=== PATIENT | female | born 1945 | race Two or more races ===

== ENCOUNTER 2017-07-02 16:44 | Emergency (ER) | payer SELFPAY ==
[~2017-07-02] VITALS: Ht 162.6 cm; Wt 65.8 kg
[~2017-07-02 16:44] MED LIST: AMLO10TA2 PO; ASPI-605 PO; CEPH-570 PO; CLOP75TA2 PO; GLIP10TA11 PO; LEVO50TA8 PO; METF500T4 PO; OMEP20CA10 PO; SIMV10TA6 PO
--- NOTE | 2017-07-02 17:00 | NUR ---
PT CAME IN FOR RIGHT ANKLE INJURY x 1 MONTH AGO, GETTING WORSE, RADIATES TO THIGH. SEEN BY MD VERITO GABRIEL. VSS. FAMILY MEMBER REMAINS AT BS. SAFETY AND COMFORT MEASURES PROVIDED. WILL MONITOR.
--- NOTE | 2017-07-02 17:05 | NUR ---
DOPPLER STUDY AT .
--- NOTE | 2017-07-02 17:42 | NUR ---
Patient discharged to home in stable condition. Written and verbal after care instructions given. Patient verbalizes understanding of instruction.
[2017-07-02 17:45] VITALS: BP 158/71
== END 2017-07-02 17:45 | disposition home or self-care (01) ==
LOC: ER 16:46
DX: I83.013 Varicose veins of right lower extremity with ulcer of ankle (principal); L97.319 Non-pressure chronic ulcer of right ankle with unspecified severity; E78.5 Hyperlipidemia, unspecified; I10 Essential (primary) hypertension; E11.622 Type 2 diabetes mellitus with other skin ulcer; E03.9 Hypothyroidism, unspecified; Z79.82 Long term (current) use of aspirin
CPT/HCPCS: 93971; 99284; A4606; Z7610

== ENCOUNTER 2020-07-15 23:54 | Inpatient (IN) | payer MEDICAID ==
[~2020-07-15] VITALS: Ht 157.5 cm; Wt 66.5 kg
[~2020-07-15 23:54] MED LIST changes: +AMLO-213 PO; -AMLO10TA2 PO; +CLOP75TA15 PO; -CLOP75TA2 PO; +METF-440 PO; -METF500T4 PO; -OMEP20CA10 PO; +OMEP20CA15 PO; -SIMV10TA6 PO; +SIMV10TA98 PO
--- NOTE | 2020-07-16 00:14 | NUR ---
BIB DAUGHTER FOR C/O WORSENING BLE EDEMA FOR 2 DAYS. - C/O PAIN OR DISCOMFORT. PT AMBULATORY TO BED 09. PLACED ON A MONITOR . VSS. WILL CONT TO MONITOR ,
--- NOTE | 2020-07-16 01:08 | NUR ---
BLOOD COLLECTED AND SENT TO LAB
--- NOTE | 2020-07-16 01:16 | NUR ---
URINE COLLECTED AND SENT TO LAB
[2020-07-16 01:23] LABS: BILIRUBIN,URINE NEGATIVE (NEGATIVE); BLOOD, URINE TRACE-INTA Ery/uL (NEGATIVE); COLOR,URINE YELLOW (YELLOW); LEUKOCYTE ESTERASE ,URINE SMALL (NEGATIVE); NITRITE, URINE NEGATIVE (NEGATIVE); PROTEIN,URINE NEGATIVE (NEGATIVE); UGLUCOSE NEGATIVE (NEGATIVE); UROBILINOGEN,URINE 0.2 EU/dL (0.2)
[2020-07-16 01:25] LABS: BASOPHILS % (AUTO) 0.5 % (0.0-2.0); EOSINOPHILS % (AUTO) 2.1 % (0.0-6.0); HEMATOCRIT 31 % (33-45); LYMPHOCYTES # (AUTO) 3.2 /CMM (0.8-4.8); LYMPHOCYTES % (AUTO) 40.8 % (20.0-44.0); MEAN CORPUSCULAR HGB CONC 33 g/dl (31.0-36.0); MEAN CORPUSCULAR VOLUME 82 fL (82-100); MONOCYTES # (AUTO) 0.5 /CMM (0.1-1.30); NEUTROPHILS % (AUTO) 50.6 % (43.0-81.0); PLATELET COUNT (AUTO) 314 /CMM (150-450); RED BLOOD CELL COUNT(AUTO) 3.73 MIL/uL (4.0-5.2); WHITE BLOOD COUNT (AUTO) 7.9 K/uL (4.3-11.0)
[2020-07-16 01:28] LABS: BACTERIA,URINE None seen /HPF (None Seen); SQUAMOUS EPITHELIAL CELL,UR Few /HPF (None Seen); WBC,URINE 0-2 /HPF (0-3)
[2020-07-16 01:35] LABS: CALCIUM, SERUM 8.5 mg/dL (8.5-10.1); CARBON DIOXIDE 22 mmol/L (21-32); CHLORIDE 102 mmol/L (98-107); CREATININE 1.1 mg/dL (0.6-1.3); GLUCOSE 230 mg/dL (74-106); SODIUM SERUM 138 mmol/L (136-145); UREA NITROGEN, BLOOD 27 mg/dL (7-18)
[2020-07-16 01:41] LABS: ALANINE AMINOTRANSFERASE 42 U/L (12-78); ALBUMIN 3.5 g/dL (3.4-5.0); ALKALINE PHOSPHATASE 122 U/L (46-116); ASPARTATE AMINOTRANSFERASE 15 U/L (15-37); BILIRUBIN,TOTAL 0.2 mg/dL (0.2-1.0); TOTAL PROTEIN, SERUM 7.7 g/dL (6.4-8.2)
--- NOTE | 2020-07-16 02:38 | NUR ---
US TECH AT BED SIDE
[2020-07-16] MEDS ORDERED: CRAN250C PO (04:53)
[2020-07-16] MEDS ORDERED: LEVO88TA5 PO (04:53)
[2020-07-16] MEDS ORDERED: ATOR40TA GT (04:53)
[2020-07-16] MEDS ORDERED: METO50TA16 PO (04:53)
--- NOTE | 2020-07-16 04:57 | NUR ---
DR DIANE PAGED PER MD'S ORDER
[2020-07-16] MEDS ORDERED: ASPIRIN 81 MG TAB.CHEW PO ONE (05:00)
[2020-07-16] MEDS ORDERED: ASPIRIN 81 MG TAB.CHEW ONE (05:00)
[2020-07-16] MEDS ORDERED: FUROSEMIDE 20 MG/2 ML VIAL IV ONE (05:00)
[2020-07-16] MEDS ORDERED: FUROSEMIDE 20 MG/2 ML VIAL ONE (05:00)
--- NOTE | 2020-07-16 05:26 | NUR ---
CALLED HOUSE SUP FOR TELE BED. COVID : NEG
--- NOTE | 2020-07-16 05:30 | NUR ---
TELE BED : 921-
--- NOTE | 2020-07-16 05:52 | NUR ---
REPORT GIVEN TO HYUN GIANG FOR MAHESH
--- NOTE | 2020-07-16 06:25 | NUR ---
PT WAS TRANSFERRED TO 325 UNDER ACLS
[2020-07-16] MEDS ORDERED: MAGNESIUM HYDROXIDE 30 ML UDC PO PRN (06:30)
[2020-07-16] MEDS ORDERED: Z GUARD REMEDY 2 OZ OINT TP PRN (06:30)
[2020-07-16] MEDS ORDERED: HYDROCODONE/APAP 5/325MG TABLET PO PRN (06:30)
[2020-07-16] MEDS ORDERED: MAG HYDROX/AL HYDROX/SIMETH 30 ML UDC PO PRN (06:30)
[2020-07-16] MEDS ORDERED: ZOLPIDEM TARTRATE 5 MG TABLET PO PRN (06:30)
[2020-07-16] MEDS ORDERED: ONDANSETRON HCL/PF 4 MG/2 ML VIAL IVP PRN (06:30)
[2020-07-16] MEDS ORDERED: ACETAMINOPHEN 325 MG TABLET PO PRN (06:30)
--- NOTE | 2020-07-16 06:30 | NUR ---
BURRING WHEEL OPERATOR OPEN NOTES RECEIVED PT FROM ER VIA GURNEY. PT WAS ABLE TO AMBULATE TO BED. A/O X4, WOLOF SPEAKING. STABLE ON RA, NO SOB/ ACUTE RESPIRATORY DISTRESS NOTED. IV IN L UPPERARM #20G IS PATENT AND INTACT. PT DENIES ANY PAIN AT THE MOMENT. PT ORIENTED TO ROOM. BED IS IN LOWEST LOCKED POSITION WITH SIDE RAILS UP X2, SEMI FOWLERS. BED ALARM ON. CALL LIGHT IS WITHIN REACH. WILL ENDORSE TO AM NURSE. VS UPON ADMISSION: BP 133/58 HR 67 RR 18 TEMP 98.1 O2 99%
--- NOTE | 2020-07-16 07:30 | NUR ---
TELE/RN OPENING NOTES Received patient in bed, A&O x 4, indian speaking. Denies any pain/discomfort at this time. Breathing even and non-labored on RA, denies SOB. No cardiac distress noted, on tele monitor reading SR 60s. IV access noted on ROSLYN #20g, patent and intact, and flushing well. Bed locked to its lowest position, side rails x 2 up, call light in hand. Will continue with current medical management.
[2020-07-16 08:00] VITALS: BP 133/64
[2020-07-16] MEDS: CLOPIDOGREL BISULFATE 75 MG TABLET PO SCH (08:28)
[2020-07-16] MEDS: FUROSEMIDE 20 MG/2 ML VIAL IV SCH (08:29)
[2020-07-16] MEDS: METOPROLOL TARTRATE 50 MG TABLET PO SCH ×2 (08:29→16:55)
[2020-07-16] MEDS: METFORMIN 500 MG TABLET PO SCH ×2 (08:37→16:55)
[2020-07-16] MEDS ORDERED: AMLODIPINE BESYLATE 10 MG TABLET PO SCH (09:00)
[2020-07-16] MEDS ORDERED: Medication Not On Formulary EA (Cranberry Extract (Cranberry) 250 MG) PO SCH (09:00)
[2020-07-16] MEDS ORDERED: ASPIRIN EC 81 MG TABLET.DR PO SCH (09:00)
[2020-07-16] MEDS: VALSARTAN 80 MG TABLET PO SCH (09:11)
[2020-07-16 10:16] LABS: THYROID STIMULATING HORMONE 0.01 uIU/mL (0.358-3.74)
--- NOTE | 2020-07-16 13:16 | NUR ---
TELE/RN NOTE Notified Pilar Navarro of patient's VTE score of 3. Ordered Lovenox 30 mg q24h. Orders carried out. Patient contraindicated for DVT pumps due to BLE edema. Will continue to monitor.
[2020-07-16] MEDS: ENOXAPARIN SODIUM 40 MG/0.4 ML DISP.SYRIN SQ SCH (14:22)
[2020-07-16 16:00] VITALS: BP 117/57
--- NOTE | 2020-07-16 17:00 | NUR ---
MS/RN NOTE Patient's daughter, Alexia, called to ask if she could talk to the hospitalist regarding plan of care. Notified Pilar Navarro NP and gave patient's daughter's number based on face sheet.
--- NOTE | 2020-07-16 19:34 | NUR ---
MS/RN CLOSING NOTES Patient in bed, A&O x 4. All needs met and attended to. VSS, afebrile. Denies any pain/discomfort at this time. Breathing even and non-labored on RA, denies SOB. No cardiac distress noted.. IV access noted on ROSLYN #20g, patent and intact, and flushing well. Sensation from all peripheral extremities intact. Fall precautions maintained. Will endorse to wine blender nurse.
--- NOTE | 2020-07-16 19:40 | NUR ---
MSRN FULLY AWAKE, NO COMPLAINTS MADE,, STABLE FOR NOW. SAFETY PRECAUTIONS EMPHASIZED, REMINDED TO CALL STAFF FOR ANY DISCOMFORTS, PLAN OF CARE AND MEDICATION REGIMEN DISCUSSED WITH PATIENT APPEARS TO UNDERSTAND. FLUIDS MONITORED.
[2020-07-16 20:00] VITALS: BP 109/55
[2020-07-16] MEDS ORDERED: ATORVASTATIN 40 MG TABLET PO SCH (22:00)
[2020-07-17] MEDS ORDERED: LEVOTHYROXINE SODIUM 88 MCG TABLET PO SCH (07:30)
[2020-07-17 07:39] LABS: BASOPHILS % (AUTO) 0.6 % (0.0-2.0); EOSINOPHILS % (AUTO) 1.3 % (0.0-6.0); HEMATOCRIT 32 % (33-45); HEMOGLOBIN 10.5 g/dL (11.5-14.8); LYMPHOCYTES % (AUTO) 42.7 % (20.0-44.0); MEAN CORPUSCULAR HGB CONC 33 g/dl (31.0-36.0); MEAN CORPUSCULAR VOLUME 82 fL (82-100); MONOCYTES # (AUTO) 0.4 /CMM (0.1-1.30); MONOCYTES % (AUTO) 6.2 % (2.0-12.0); NEUTROPHILS # (AUTO) 3.4 /CMM (1.8-8.9); NEUTROPHILS % (AUTO) 49.2 % (43.0-81.0); PLATELET COUNT (AUTO) 343 /CMM (150-450)
[2020-07-17 07:54] LABS: ALANINE AMINOTRANSFERASE 39 U/L (12-78); ALBUMIN 3.3 g/dL (3.4-5.0); ALKALINE PHOSPHATASE 108 U/L (46-116); ASPARTATE AMINOTRANSFERASE 19 U/L (15-37); BILIRUBIN,TOTAL 0.2 mg/dL (0.2-1.0); CALCIUM, SERUM 8.6 mg/dL (8.5-10.1); CARBON DIOXIDE 25 mmol/L (21-32); CHLORIDE 102 mmol/L (98-107); CREATININE 0.9 mg/dL (0.6-1.3); GLUCOSE 180 mg/dL (74-106); MAGNESIUM 1.7 mg/dL (1.8-2.4); PHOSPHORUS 4.3 mg/dL (2.5-4.9); SODIUM SERUM 139 mmol/L (136-145); TOTAL PROTEIN, SERUM 7.4 g/dL (6.4-8.2); UREA NITROGEN, BLOOD 22 mg/dL (7-18)
[2020-07-17 08:00] VITALS: BP 138/65
--- NOTE | 2020-07-17 08:00 | NUR ---
RECEIVED PT. IN AM ALERT AND ORIENTED X4. NO COMPLAINTS OFFERED FAMILY CALLING IN.
[2020-07-17 08:05] LABS: CHOLESTEROL 155 mg/dL (<200); HDL CHOLESTEROL 60 mg/dL (40-60); LDL 67 mg/dL (0-99); TRIGLYCERIDES 205 mg/dL (30-150)
[2020-07-17] MEDS ORDERED: ASPIRIN EC 81 MG TABLET.DR PO SCH (09:00)
[2020-07-17] MEDS: METFORMIN 500 MG TABLET PO SCH (09:45)
[2020-07-17] MEDS: CLOPIDOGREL BISULFATE 75 MG TABLET PO SCH (09:45)
[2020-07-17] MEDS: METOPROLOL TARTRATE 50 MG TABLET PO SCH (09:46)
[2020-07-17] MEDS: FUROSEMIDE 20 MG/2 ML VIAL IV SCH (09:46)
[2020-07-17] MEDS: ENOXAPARIN SODIUM 40 MG/0.4 ML DISP.SYRIN SQ SCH (09:47)
[2020-07-17] MEDS: VALSARTAN 80 MG TABLET PO SCH (11:00)
[2020-07-17] MEDS ORDERED: Magnesium 1GM/D5W 100ML PREMIX 100 ML IV SCH (11:30)
[2020-07-17] MEDS: Magnesium 1GM/D5W 100ML PREMIX 100 ML IV SCH ×2 (11:55→12:57)
--- NOTE | 2020-07-17 13:00 | NUR ---
Cherelle DAVIS COTTON CLASSER AIDE HERE AND PLANS TO DISCH. TODAY.MG REPLACEMENT DONE.
[2020-07-17] MEDS ORDERED: VALS80TA2 PO (14:35)
[2020-07-17] MEDS ORDERED: FURO-145 PO (14:35)
[2020-07-17] MEDS ORDERED: LEVO75TA PO (14:35)
--- NOTE | 2020-07-17 15:30 | NUR ---
Cherelle DAVIS CALLING FAMILY WITH REPORT ON PT.ALL PAPERS SIGNED.RN CALLING FAMILY WITH INFO ON HOME MEDS.HEP LOCK OUT.TAKEN TO CAR BY FIELD REPRESENTATIVE VIA W/C.PT. WITH PRESCRIPTIONS.
[2020-07-17 16:00] VITALS: BP 135/59
== END 2020-07-17 16:50 | disposition home or self-care (01) | DRG 194 ==
LOC: ER 23:57 → TELE 07-16 05:31 → MED 07-16 12:23
PROVIDERS: ADMIT Nurse Practitioner Acute Care; ATTEND Nurse Practitioner Acute Care
DX: I11.0 Hypertensive heart disease with heart failure (principal); E11.9 Type 2 diabetes mellitus without complications; E78.5 Hyperlipidemia, unspecified; F03.90 Unspecified dementia, unspecified severity, without behavioral disturbance, psychotic disturbance, mood disturbance, and anxiety; Z86.73 Personal history of transient ischemic attack (TIA), and cerebral infarction without residual deficits; E05.90 Thyrotoxicosis, unspecified without thyrotoxic crisis or storm; I50.33 Acute on chronic diastolic (congestive) heart failure; J96.01 Acute respiratory failure with hypoxia; Z79.82 Long term (current) use of aspirin; Z79.02 Long term (current) use of antithrombotics/antiplatelets; J90 Pleural effusion, not elsewhere classified; D50.9 Iron deficiency anemia, unspecified; Z79.84 Long term (current) use of oral hypoglycemic drugs
CPT/HCPCS: 36415; 71045-TC; 80048-TC; 80053-TC; 80061-TC; 80076-TC; 81001; 82728-TC; 83540-TC; 83735-TC; 83880; 84100-TC; 84155; 84165; 84439-TC; 84443-TC; 84484-TC; 85025-TC; 87081-TC; 93307-TC; 93970-TC; C9803; G0378; J1650; J1940; J3475

== ENCOUNTER 2021-02-01 11:38 | Inpatient (IN) | payer MEDICAID ==
[~2021-02-01] VITALS: Ht 157.5 cm; Wt 72.1 kg
[~2021-02-01 11:38] MED LIST changes: -AMLO-213 PO; +ATOR40TA PO; -CEPH-570 PO; +CRAN250C PO; +FURO-145 PO; -GLIP10TA11 PO; -LEVO50TA8 PO; +LEVO75TA PO; +METO50TA16 PO; -OMEP20CA15 PO; -SIMV10TA98 PO; +VALS80TA2 PO
--- NOTE | 2021-02-01 11:55 | NUR ---
BIB Daughter "weakness/numbness on/off x2wks was given neurontin by PMD but not better numbness worse now>L arm" Patient a/ox4, estonian speaking, changed into a gown, attached to the oil burner servicer and installer. Dr. Emmanuel at bedside for eval.
[2021-02-01] MEDS ORDERED: LEVO25TA7 PO (12:15)
[2021-02-01] MEDS ORDERED: ERGO500040 PO (12:15)
[2021-02-01] MEDS ORDERED: *INS REG3 IJ (12:15)
[2021-02-01] MEDS ORDERED: IBUP-1955 PO (12:15)
[2021-02-01] MEDS ORDERED: INSU100V10 SQ (12:15)
[2021-02-01] MEDS ORDERED: GABA-532 PO (12:15)
[2021-02-01] MEDS ORDERED: CARV25TA PO (12:15)
[2021-02-01 12:25] LABS: BASOPHILS % (AUTO) 0.6 % (0.0-2.0); EOSINOPHILS % (AUTO) 1.7 % (0.0-6.0); HEMATOCRIT 30 % (33-45); HEMOGLOBIN 9.9 g/dL (11.5-14.8); LYMPHOCYTES % (AUTO) 29.8 % (20.0-44.0); MEAN CORPUSCULAR HGB CONC 33 g/dl (31.0-36.0); MEAN CORPUSCULAR VOLUME 91 fL (82-100); MONOCYTES # (AUTO) 0.5 /CMM (0.1-1.30); MONOCYTES % (AUTO) 7.8 % (2.0-12.0); NEUTROPHILS # (AUTO) 4.1 /CMM (1.8-8.9); NEUTROPHILS % (AUTO) 60.1 % (43.0-81.0); PLATELET COUNT (AUTO) 234 /CMM (150-450); RED BLOOD CELL COUNT(AUTO) 3.35 MIL/uL (4.0-5.2); WHITE BLOOD COUNT (AUTO) 6.8 K/uL (4.3-11.0)
[2021-02-01 12:31] LABS: CALCIUM, SERUM 8.7 mg/dL (8.5-10.1); CARBON DIOXIDE 27 mmol/L (21-32); CHLORIDE 105 mmol/L (98-107); GLUCOSE 66 mg/dL (74-106); POTASSIUM 4.1 mmol/L (3.5-5.1); SODIUM SERUM 141 mmol/L (136-145); UREA NITROGEN, BLOOD 41 mg/dL (7-18)
[2021-02-01 12:37] LABS: ALANINE AMINOTRANSFERASE 31 U/L (12-78); ALBUMIN 3.5 g/dL (3.4-5.0); ALKALINE PHOSPHATASE 70 U/L (46-116); ASPARTATE AMINOTRANSFERASE 19 U/L (15-37); BILIRUBIN,DIRECT 0.1 mg/dL (0.0-0.2); BILIRUBIN,TOTAL 0.2 mg/dL (0.2-1.0); TOTAL PROTEIN, SERUM 7.2 g/dL (6.4-8.2)
[2021-02-01 12:55] LABS: THYROID STIMULATING HORMONE 3.171 uIU/mL (0.358-3.74)
--- NOTE | 2021-02-01 12:55 | NUR ---
PATIENT WENT TO THE RESTROOM WITH THE DAUGHTER, THEN STARTED C/O DIZZINESS AND SWEATING. BS CHECKED 40. DR. NARAYAN MADE AWARE AND RECEIVED ORDER TO GIVE DEXTROSE 50% IV X1.
[2021-02-01] MEDS ORDERED: DEXTROSE 50%-WATER 50 ML DISP.SYRIN ONE (12:58)
--- NOTE | 2021-02-01 13:07 | NUR ---
urine and covid swab sent to lab.
[2021-02-01 13:16] LABS: BILIRUBIN,URINE Negative (NEGATIVE); COLOR,URINE YELLOW (YELLOW); LEUKOCYTE ESTERASE ,URINE Negative (NEGATIVE); NITRITE, URINE Negative (NEGATIVE); PROTEIN,URINE Negative (NEGATIVE); UGLUCOSE Negative (NEGATIVE); UROBILINOGEN,URINE 0.2 EU/dL (0.2)
[2021-02-01] MEDS ORDERED: IV NS 0.9% 1,000 ML BAG IV ONE (13:30)
[2021-02-01] MEDS ORDERED: DEXTROSE 50%-WATER 50 ML DISP.SYRIN IV ONE (13:30)
--- NOTE | 2021-02-01 13:43 | NUR ---
COVID NEGATIVE RESULT
--- NOTE | 2021-02-01 14:05 | NUR ---
PATIENT IS RESTING, NO DISTRESS NOTED.
--- NOTE | 2021-02-01 14:12 | NUR ---
bed 329-1
--- NOTE | 2021-02-01 14:18 | NUR ---
REPORT GIVEN TO YOSELIN LOPEZ FOR MAHESH.
--- NOTE | 2021-02-01 14:48 | NUR ---
PATIENT A/OX4, BREATHING EVEN AND UNLABORED, KEPT OXYGEN OFF, PATIENT HAS A SPO2 OF 97% ON ROOM AIR. NEEDS ATTENDED. PATIENT TRANSFERRED TO ROOM 329 IN STABLE CONDITION.
--- NOTE | 2021-02-01 14:50 | NUR ---
RN ADMITTING NOTES PT TRANSPORTED BY BED TO UNIT FROM ED AT THIS TIME RECEIVED REPORT FROM LAUREL ELKINS AOX4. SAMOAN SPEAKING. NO SOB NOTED, NO C//O OF PAIN AT THIS TIME, NO S/S OF ANY APPARENT DISTRESS NOTED.RESPIRATIONS EVEN AND UNLABORED, STABLE ON RA. ACTIVE BOWEL SOUNDS AUSCULTATED THROUGHOUT, INTACT SKIN AND WARM TO TOUCH. CAPILLARY REFILL< 3SECONDS, PULSES PRESENT BILATERALLY, GOOD CIRCULATION NOTED. IV ACCESS NOTED IN LEFT HAND G#20, INTACT, PATENT AND FLUSHING WELL. PT'S BELONGINGS ACCOUNTED FOR, SIGNED BY PT AND KEPT AT PT'S BEDSIDE PER PT REQUEST. ASPIRATION AND SAFETY PRECAUTIONS IN PLACE AND MAINTAINED AT ALL TIMES. BED IN LOWEST LOCKED POSITION, SIDE RAILS UPX2, TABLE AND CALL LIGHT WITHIN REACH. WILL CONTINUE WITH PLAN OF CARE
[2021-02-01 16:09] VITALS: BP 161/66
[2021-02-01] MEDS ORDERED: MAG HYDROX/AL HYDROX/SIMETH 30 ML UDC PO PRN (16:30)
[2021-02-01] MEDS ORDERED: ONDANSETRON HCL/PF 4 MG/2 ML VIAL IVP PRN (16:30)
[2021-02-01] MEDS ORDERED: DEXTROSE 50%-WATER 50 ML DISP.SYRIN IV PRN (16:30)
[2021-02-01] MEDS ORDERED: IBUPROFEN 600 MG TABLET PO PRN (16:30)
[2021-02-01] MEDS ORDERED: MAGNESIUM HYDROXIDE 30 ML UDC PO PRN (16:30)
[2021-02-01] MEDS ORDERED: ACETAMINOPHEN 325 MG TABLET PO PRN (16:30)
[2021-02-01] MEDS ORDERED: Z GUARD REMEDY 2 OZ OINT TP PRN (16:30)
[2021-02-01] MEDS: IV NS 0.9% 1,000 ML IV PRN (17:21)
[2021-02-01] MEDS: GABAPENTIN 100 MG CAPSULE PO SCH (17:34)
[2021-02-01] MEDS: BLOOD SUGAR DIAGNOSTIC 1 EACH STRIP IN SCH ×2 (17:35→23:26)
--- NOTE | 2021-02-01 18:45 | NUR ---
RN CLOSING NOTES PT AWAKE IN BED AT THIS TIME. PT REMAINED STABLE THROUGHOUT SHIFT. SAFETY PRECAUTIONS IN PLACE AND MAINTAINED AT ALL TIMES. BED IN LOWEST LOCKED POSITION, HOB ELEVATED, SIDE RAILS UP X 2. CALL LIGHT AND TABLE WITHIN REACH. WILL ENDORSE TO GENERAL OFFICE ASSISTANT NURSE FOR MAHESH
--- NOTE | 2021-02-01 18:48 | NUR ---
ANDREW ([phone]) FROM [facility] CALLED THAT PATIENT SHOULD BE TRANSFERRED TO [facility] BETWEEN 8:30AM -9:00AM FOR MRI CSPINE. WILL CONTINUE WITH PLAN OF CARE
[2021-02-01 20:00] VITALS: BP_SYST 170; BP_SYST 179; BP_DIAS 69
--- NOTE | 2021-02-01 20:37 | NUR ---
RETAIL ACCOUNT EXECUTIVE OPENING PATIENT IN BED SITTING. 2 FAMILY MEMBERS IN THE ROOM. NO S/S OF DISTRESS. NO C/O PAIN CYDNEY. TELE BOX READING SR TO THE 90. PATIENT A/OX4. LEBANESE SPEAKING ONLY. SAFETY IN PLACE: BED IN LOWEST, LOCKED POSITION; CALL LIGHT WITHIN REACH. WILL CONTINUE TO MONITOR.
[2021-02-01] MEDS: CARVEDILOL 12.5 MG TABLET PO SCH (21:13)
[2021-02-01] MEDS: ENOXAPARIN SODIUM 40 MG/0.4 ML DISP.SYRIN SQ SCH (21:18)
[2021-02-01] MEDS ORDERED: INSULIN GLARGINE, 100 UNIT/ML CARTRIDGE SQ SCH (22:00)
[2021-02-01] MEDS ORDERED: ATORVASTATIN 40 MG TABLET PO SCH (22:00)
[2021-02-01] MEDS: INSULIN REGULAR, HUMAN 100 UNIT/ML 3 ML VIAL SQ PRN (23:30)
[2021-02-02] VITALS (7 sets, daily range): BP systolic 121–162; BP diastolic 55–79
--- NOTE | 2021-02-02 00:55 | NUR ---
INSURANCE APPRAISER NOTES PATIENT BS 22. GIVEN 4 UNITS OF REGULAR INSULIN PER SLIDING SCALE AND 15 UNITS OF LANTUS SCHEDULED. WILL CONTINUE TO MONITOR. Addendum: 02/02/21 at 0614 by REGAN ABREU RN INSURANCE APPRAISER NOTES PATIENT BS 222*. GIVEN 4 UNITS OF REGULAR INSULIN PER SLIDING SCALE AND 15 UNITS OF LANTUS SCHEDULED. WILL CONTINUE TO MONITOR.
--- NOTE | 2021-02-02 03:03 | NUR ---
DIRECT CARE PROFESSIONAL NOTES CALLED [facility] FOR THE TRANSFER. TALKED TO [place] AND FAXED PATIENT'S FACESHEET, COVID RESULT, AND HISTORY AND PHYSICAL TO THEM THEY ASKED. PER [facility] THEY WILL PROVIDE TRANSPORTATION FOR PATIENT AT AROUND [phone]. TRANSPORTATION AGREEMENT SIGNED BY NURSING PRODUCTION ENGINEER AND .
--- NOTE | 2021-02-02 04:56 | NUR ---
WIND FARM ENGINEER NOTES PATIENT C/O NUMBNESS/TINGLING OF FINGERS. CHECKED HER BS AND IT WAS 50. GAVE ORANGE JUICE. LET THE CHARGE NURSE KNOW SINCE PROTOCOL IS TO GIVE D5W. MARY SAID IT WAS OKAY SINCE I GAVE ORANGE JUICE ALREADY. WILL REASSESS AND CONTINUE TO MONITOR.
--- NOTE | 2021-02-02 05:15 | NUR ---
COMPONENT ASSEMBLER NOTES PATIENT BS 88 WHEN I RECHECKED. WILL CONTINUE TO MONITOR.
--- NOTE | 2021-02-02 06:12 | NUR ---
NAVAL AIRCREWMAN TACTICAL HELICOPTER CLOSING PATIENT IN BED. A/OX4. AMBULATING TO THE RESTROOM. NO S/S OF DISTRESS. ABLE TO MAKE NEEDS KNOWN. ALL NEEDS ATTENDED. NO C/O PAIN. L. HAND IV RUNNING NS @50ML/HR. ALL SCHED MEDS ADMINISTERED. SAFETY KEPT IN PLACE THE WHOLE SHIFT: BED IN LOWEST, LOCKED POSITION; CALL LIGHT WITHIN REACH. TRANSFER PAPERS: FACESHEET, COVID RESULT, H&P FAXED TO [facility]. PATIENT WILL BE TRANSFERED THIS AM, WILL ENDORSE TO MORNING SHIFT RN.
--- NOTE | 2021-02-02 06:18 | NUR ---
TEXTED DR. AGUILERA FOR MRI APPROVAL.IF APPROVED IT WILL BE DONE TODAY BETWEEN 8am /9.30am.
[2021-02-02 06:40] LABS: BASOPHILS % (AUTO) 0.5 % (0.0-2.0); EOSINOPHILS % (AUTO) 1.6 % (0.0-6.0); HEMATOCRIT 32 % (33-45); HEMOGLOBIN 10.4 g/dL (11.5-14.8); LYMPHOCYTES % (AUTO) 29.6 % (20.0-44.0); MEAN CORPUSCULAR HGB CONC 33 g/dl (31.0-36.0); MEAN CORPUSCULAR VOLUME 91 fL (82-100); MONOCYTES # (AUTO) 0.5 /CMM (0.1-1.30); NEUTROPHILS # (AUTO) 4.1 /CMM (1.8-8.9); NEUTROPHILS % (AUTO) 61.3 % (43.0-81.0); PLATELET COUNT (AUTO) 221 /CMM (150-450); RED BLOOD CELL COUNT(AUTO) 3.51 MIL/uL (4.0-5.2); WHITE BLOOD COUNT (AUTO) 6.7 K/uL (4.3-11.0)
[2021-02-02] MEDS: BLOOD SUGAR DIAGNOSTIC 1 EACH STRIP IN SCH ×4 (06:48→21:32)
[2021-02-02 06:53] LABS: CALCIUM, SERUM 8.6 mg/dL (8.5-10.1); CREATININE 0.9 mg/dL (0.6-1.3); MAGNESIUM 1.8 mg/dL (1.8-2.4); PHOSPHORUS 4.5 mg/dL (2.5-4.9)
[2021-02-02 07:17] LABS: THYROID STIMULATING HORMONE 2.43 uIU/mL (0.358-3.74)
--- NOTE | 2021-02-02 07:18 | NUR ---
TELE/RN OPENING NOTES PATIENT IS IN BED ALERT AND ORIENTED X 4, BELARUSIAN SPEAKING ONLY. PATIENT BREATHING IS EVEN AND UNLABORED ON ROOM AIR WITH NO SIGNS OF DISTRESS OR RESPIRATORY DISTRESS NOTED. PATIENT IV ACCESS IS INTACT AND FLUSHING WELL. PATIENT WITH PERIPHERAL IV ACCESS ON LEFT HAD G20 WITH IVF RUNNING AT 50ML/HR. SAFETY MEASURE ARE IN PLACE WITH BED IS LOCKED AND PLACED IN THE LOWEST POSITION. SIDE RAILS UP X 2. CALL LIGHT WITHIN REACH AT ALL TIMES. WILL CONTINUE TO MONITOR PATIENT CLOSELY
[2021-02-02] MEDS ORDERED: LEVOTHYROXINE SODIUM 125 MCG TABLET PO SCH (07:30)
--- NOTE | 2021-02-02 08:09 | NUR ---
RN NOTES REQUESTED CD OF REPORTS/IMAGES STAT.
[2021-02-02] MEDS: GABAPENTIN 100 MG CAPSULE PO SCH ×2 (08:45→16:48)
[2021-02-02] MEDS: CARVEDILOL 12.5 MG TABLET PO SCH ×2 (08:46→21:31)
[2021-02-02] MEDS ORDERED: ASPIRIN EC 81 MG TABLET.DR PO SCH (09:00)
[2021-02-02] MEDS ORDERED: PANTOPRAZOLE 40 MG VIAL IV SCH (09:00)
[2021-02-02] MEDS: IV NS 0.9% 1,000 ML IV PRN (10:59)
--- NOTE | 2021-02-02 11:00 | NUR ---
MACHINE DESIGN ENGINEER NOTES RECEIVED A CALL FROM CLIENT EXPERIENCE CONSULTANT/ SHERIFF'S DETECTIVE CARLITOS. SHE SAID TRANSFER IS ON HOLD FOR THE MEANTIME AND THAT THE DOCTOR FROM [facility] WILL WAIT FOR THE RESULT OF THE MRI BEFORE THEY CAN DECIDE FOR THE TRANSFER. PATIENT REMAINS MEDICALLY STABLE. WILL CONTINUE TO MONITOR PATIENT.
--- NOTE | 2021-02-02 11:03 | NUR ---
PHLEBOTOMY SERVICES REPRESENTATIVE NOTES PER CARLITOS, TAPERING MACHINE OPERATOR, TRANSFER ON HOLD FOR THE MEANTIME. FROM [facility] WAITING FOR MRI RESULT. TAPERING MACHINE OPERATOR/ ATTENDING UROLOGIST WILL CALL ONCE TRANSFER WILL PUSH THROUGH. WILL CONTINUE TO MONITOR PATIENT.
[2021-02-02] MEDS: INSULIN REGULAR, HUMAN 100 UNIT/ML 3 ML VIAL SQ PRN ×2 (12:17→16:48)
--- NOTE | 2021-02-02 19:29 | NUR ---
DIEING OUT MACHINE OPERATOR CLOSING NOTES PATIENT IS ON BED ALERT AND ORIENTED X 4, SPEAKS ONLY BHUTANESE, WITH NO SIGNS OF DISTRESS. PATIENT BREATHING IS EVEN AND UNLABORED ON ROOM AIR WITH NO SIGNS OF RESPIRATORY DISTRESS. PATIENT IV ACCESS ON LEFT HAND G20 COVERED WITH TEGADERM, INTACT WITH NO SIGNS OF INFLAMMATION. WITH ONGOING IVF NS AT 50ML/HR INFUSING WELL. PATIENT CONNECTED TO TELE MONITOR READING SINUS RHYTHYM 63. ALL NEEDS ATTENDED. SAFETY MEASURE ARE IN PLACE, BED IS LOCKED AND PLACED IN THE LOWEST POSITION, SIDE RAILS UP X 2 AND CALL LIGHT WITHIN REACH. AT ALL TIMES. WILL ENDORSE PATIENT TO NEXT SHIFT FOR CONTINUITY OF CARE.
--- NOTE | 2021-02-02 19:45 | NUR ---
TELE/RN OPENING NOTE RECEIVED PATIENT RESTING IN BED WITH DAUGHTER AT BEDSIDE. PATIENT IS ALERT AND ORIENTED X 4. ABLE TO MAKE NEEDS KNOWN. PRIMARILY SYRIAC SPEAKING. NO COMPLAINTS OF PAIN AT THIS TIME. IV ACCESS TO LEFT HAND #20G INTACT AND PATENT. CONTINUES ON IV NS @ 50ML/HR. PATIENT TO BE DISCHARGED HOME TONIGHT WITH DAUGHTER. AWAITING MD ORDERS. CALL LIGHT WITHIN REACH. ASPIRATION, FALL AND SAFETY PRECAUTIONS MAINTAINED. WILL CONTINUE TO MONITOR.
--- NOTE | 2021-02-02 20:30 | NUR ---
TELE/RN NOTE PATIENT TO DISCHARGE HOME TONIGHT WITH DAUGHTER ASHLEE. DAUGHTER TO BE BACK TO PICK PATIENT UP AROUND 2100. ALL DISCHARGE PAPERWORK REVIEWED WITH DAUGHTER AND PATENT. PATIENT SIGNED D/C PAPERWORK AND BELONGINGS LIST. ALL BELONGINGS ACCOUNTED FOR. PATIENT CURRENTLY RESTING IN BED. AWAITING RIDE FROM DAUGHTER FOR DISCHARGE.
[2021-02-02] MEDS: ENOXAPARIN SODIUM 40 MG/0.4 ML DISP.SYRIN SQ SCH (21:00)
--- NOTE | 2021-02-02 21:48 | NUR ---
CHIEF VENDOR QUALITY NOTE PATIENT DOES NOT WANT LOVENOX PRIOR TO DISCHARGE. EDUCATED ON RISKS/BENEFITS WITH PATIENT CONTINUING TO REFUSE.
--- NOTE | 2021-02-02 21:48 | NUR ---
BOAT OUTFITTING SUPERVISOR NOTE PATIENTS BLOOD SUGAR PRIOR TO DISCHARGE WAS 143. PATIENT REFUSING INSULIN AT THIS TIME.
--- NOTE | 2021-02-02 21:49 | NUR ---
TELE/LAMP SHADES SUPERVISOR NOTE PATIENT DISCHARGING HOME WITH DAUGHTER ASHLEE. ALL BELONGINGS ACCOUNTED FOR AND SIGNED FOR. DISCHARGE PAPERWORK REVIEWED AND QUESTIONS ANSWERED. BP @ 2100 157/79 - GIVEN ROUTINE CARVEDILOL PRIOR TO DISCHARGE. TELE MONITOR REMOVED. LAST READING WAS SR 81. IV DISCONTINUED WITH PATIENT TOLERATING WELL. PRESSURE DRESSING APPLIED. ID BAND REMOVED. PATIENT ASSISTED TO LOBBY WITH DAUGHTER VIA WHEELCHAIR AND ASSISTED TO CAR.
[2021-02-04] MEDS ORDERED: ERGOCALCIFEROL (VITAMIN D 2) 50,000 UNIT CAPSULE PO SCH (09:00)
== END 2021-02-02 21:50 | disposition home or self-care (01) | DRG 347 ==
LOC: ER 11:41 → TELE 14:16
PROVIDERS: ADMIT Registered Nurse; ATTEND Registered Nurse
DX: M50.321 Other cervical disc degeneration at C4-C5 level (principal); E11.649 Type 2 diabetes mellitus with hypoglycemia without coma; E11.65 Type 2 diabetes mellitus with hyperglycemia; D63.8 Anemia in other chronic diseases classified elsewhere; E66.9 Obesity, unspecified; E78.5 Hyperlipidemia, unspecified; I10 Essential (primary) hypertension; F03.90 Unspecified dementia, unspecified severity, without behavioral disturbance, psychotic disturbance, mood disturbance, and anxiety; Z86.73 Personal history of transient ischemic attack (TIA), and cerebral infarction without residual deficits; R00.1 Bradycardia, unspecified; D32.0 Benign neoplasm of cerebral meninges; E03.9 Hypothyroidism, unspecified; Z79.84 Long term (current) use of oral hypoglycemic drugs; Z20.822 Contact with and (suspected) exposure to COVID-19; Z79.82 Long term (current) use of aspirin; Z79.890 Hormone replacement therapy; Z68.29 Body mass index [BMI] 29.0-29.9, adult; R53.1 Weakness; R20.0 Anesthesia of skin; Z79.4 Long term (current) use of insulin; M48.02 Spinal stenosis, cervical region
CPT/HCPCS: 36415; 70450-TC; 71045-TC; 72125-TC; 72141-TC; 80048-TC; 80061-TC; 80076-TC; 82962-TC; 83605-TC; 83735-TC; 84100-TC; 84443-TC; 84484-TC; 85025-TC; 87040-TC; 87081-TC; 97116-TC; C9113; C9803; G0378; J1650; J1815; J7030